=== PATIENT | female | born 1940 | race Hispanic/Latino ===

== ENCOUNTER 2017-10-09 22:55 | Emergency (ER) | payer MEDICARE, OTHER ==
[~2017-10-09] VITALS: Ht 157.5 cm; Wt 84.4 kg
[2017-10-10] MEDS ORDERED: METOPROLOL SUCC50 MG PO (00:31)
[2017-10-10] MEDS ORDERED: VASOTEC10 M1 PO (00:31)
[2017-10-10] MEDS ORDERED: OMEPRAZOLE40 MG (00:31)
[2017-10-10] MEDS ORDERED: PRAVASTATIN SOD40 MG (00:31)
[2017-10-10] MEDS ORDERED: TRIAMTERENE-HCTZ1 EA PO (00:31)
[2017-10-10] MEDS ORDERED: HYDROCODONE/APAP 5MG-325MG TAB PO ONE (01:15)
[2017-10-10] MEDS ORDERED: LEVOFLOXACIN 750MG/D5W 150ML 150 ML IV ONE (01:15)
[2017-10-10 02:22] VITALS: BP 130/85
== END 2017-10-10 02:15 | disposition home or self-care (01) ==
LOC: FSED 22:55
DX: R30.0 Dysuria (principal)
CPT/HCPCS: 80053; 81003; 85025; 99284